=== PATIENT | male | born 1970 | race Asian ===

== ENCOUNTER 2016-09-30 23:51 | Emergency (ER) | payer OTHER ==
[2016-10-01 00:46] LABS: % EOSINOPHILS 2.1 % (0.0-5.0); % LYMPHOCYTES 14.3 % (20.0-50.0); % MONOCYTES 7.8 % (2.0-10.0); % NEUTROPHILS 74.8 % (40.0-80.0); HEMATOCRIT 37.3 % (39.0-49.0); HEMOGLOBIN 12.7 gm/dL (13.2-17.3); MEAN CELL VOLUME 89.9 fl (80-99); MEAN CORPUSCULAR HEMOGLOBIN 30.7 pg (26.0-30.0); MEAN CORPUSCULAR HGB CONC 34.2 pg (28.0-36.0); MEAN PLATELET VOLUME 8.5 fl; NEUTROPHILE ABSOLUTE 6.3 Th/cmm (1.8-8.0); RED BLOOD COUNT 4.14 Mil/cmm (4.30-5.70)
--- NOTE | 2016-10-01 00:49 | ED Physician Chart ---
Chief Complaint/HPI - Patient Information Date Seen:: 10/01/16 Time Seen:: 00:10 Chief Complaint:: TRACH INFECTION History of Present Illness:: THIS IS A 46 YO MALE WITH QUADRAPLEGIC WITH A TRACH IN PLACE AND FUNCTIONING NORMALLY. THE PATIENT HAS AN ENCEPHALOPATHY, HE WAS SENT IN FOR A WOUND CHECK OF THE TRACH. Allergies:: Allergies Allergy/AdvReac Type Severity Reaction Status Date / Time No Known Allergies Allergy Verified 10/01/16 00:22 Vitals:: Vital Signs - 8 hr 10/01/16 00:00 Temp 98.9 F HR 80 RR 20 BP 93/51 O2 Sat % 99 Past Medical History - Past Medical History Past Medical History: HTN, CVA/TIA, Seizures, Dementia Family History: Other (UNKNOWN) Social History: Non Smoker, No Alcohol, No Drug Use Surgical History: PEG/GTube, other (TRACH) Psychiatricy History: None Medication: Reviewed Family Medical History - Family Member Mother History Unknown: Yes Ethnicity: Unknown Living Status: Unknown Hx Family Cancer: (UNKNOWN PT NON VERBAL) Hx Family Coronary Artery Disease: (UNKNOWN) Hx Family Congestive Heart Failure: (UNKNOWN) Hx Family Hypertension: (UNKNOWN) Hx Family Stroke: (UNKNOWN) Hx Family Diabetes: (UNKNOWN) Hx Family Seizures: (UNKNOWN) Hx Family Dementia: (UNKNOWN) Hx Family AIDS: (UNKNOWN) Hx Family COPD: (UNKNOWN) Hx Family Hepatitis: (UNKNOWN) Hx Family Psychiatric Problems: (UNKNOWN) Hx Family Tuberculosis: (UNKNOWN) Physical Exam - Physical Examination General/Constitutional: Awake, Well-developed, well-nourished, Alert, No distress, GCS 15, Non-toxic appearing, Ambulatory Head: Atraumatic Eyes: Lids, conjuctiva normal, PERRL, EOMI Skin: Nl inspection, No rash, No skin lesions, No ecchymosis, Well hydrated, No lymphadenopathy ENMT: External ears, nose nl, Nasal exam nl, Lips, teeth, gums nl Neck: Nontender, Full ROM w/o pain, No JVD, No nuchal rigidity, No bruit, No mass, No stridor Other Neck comments:: TRACH IN PLACE AND FUNCTION NICELY WITH NO SIGN OF BLEEDING AND WELL HEALED Respiratory: Nl effort/Exclusion, Clear to Auscultation, No Wheeze/Rhonchi/Rales Cardio Vascular: RRR, No murmur, gallop, rubs, NL S1 S2 GI: No tenderness/rebounding/guarding, No organomegaly, No hernia, Normal BS's, Nondistended, No mass/bruits, No McBurney tenderness : No CVA tenderness Extremities: No tenderness or effusion, Full ROM, normal strength in all extremities, No edema, Normal digits & nails Neuro/Psych: Alert/oriented, DTR's symmetric, Normal sensory exam, Normal motor strength, Judgement/insight normal, Mood normal, Normal gait Other Neuro/Psych comments:: QUADRAPLEGIC AND BRAIN ANOXIC (OLD) Misc: normal gait, Normal back, No paraspinal tenderness Labs/Radiology/EKG Results - Lab Results Results: Abnormal Lab Results 10/01/16 10/01/16 10/01/16 00:10 00:10 00:10 WBC 8.5 D RBC 4.14 L Hgb 12.7 L Hct 37.3 L MCV 89.9 MCH 30.7 H MCHC Differential 34.2 RDW 12.0 Plt Count 253 D MPV 8.5 Neutrophils % 74.8 Lymphocytes % 14.3 L Monocytes % 7.8 Eosinophils % 2.1 Basophils % 1.0 PT 10.0 INR 0.96 PTT (Actin FS) 27.3 Sodium 137 Potassium 3.9 Chloride 103 Carbon Dioxide 28.4 Anion Gap 9.5 BUN 22 Creatinine 0.6 L Est GFR ( Amer) > 60.0 Est GFR (Non-Af Amer) > 60.0 BUN/Creatinine Ratio 36.7 Glucose 95 Calcium 9.5 Total Bilirubin 0.4 AST 21 ALT 28 Alkaline Phosphatase 93 Troponin I Total Protein 7.2 Albumin 3.9 L Globulin 3.3 Albumin/Globulin Ratio 1.2 TSH 10/01/16 10/01/16 00:10 00:10 WBC RBC Hgb Hct MCV MCH MCHC Differential RDW Plt Count MPV Neutrophils % Lymphocytes % Monocytes % Eosinophils % Basophils % PT INR PTT (Actin FS) Sodium Potassium Chloride Carbon Dioxide Anion Gap BUN Creatinine Est GFR ( Amer) Est GFR (Non-Af Amer) BUN/Creatinine Ratio Glucose Calcium Total Bilirubin AST ALT Alkaline Phosphatase Troponin I < 0.01 L Total Protein Albumin Globulin Albumin/Globulin Ratio TSH 0.95 ED Septic Shock - . Is Septic Shock (SBP<90, OR Lactate>4 mmol\L) present?: No - <6hrs of presentation: Vital Signs: Vital Signs - 8 hr 10/01/16 00:00 Temp 98.9 F HR 80 RR 20 BP 93/51 O2 Sat % 99 Reassessment (Disposition) - Reassessment Reassessment Condition:: Unchanged - Diagnosis Diagnosis:: WOUND CHECK OF THE TRACH - Aftercare/Follow up Instructions Aftercare/Follow-Up Instructions:: Counseled pt regarding lab results/diagnosis & need follow up, Refer to Discharge Instructions, Counseled pt & family regarding lab results/diagnosis & need follow up - Patient Disposition Discharge/Transfer:: [facility] Protection [facility] Care - SNF Condition at Disposition:: Unchanged ED Discharge Plan - Patient Disposition Admit/Discharge/Transfer: Discharge/Transfered to SNF Condition at Disposition: Unchanged
[2016-10-01 00:50] LABS: PLATELET COUNT 253 Th/cmm (150-400); WHITE BLOOD COUNT 8.5 Th/cmm (4.8-10.8)
[2016-10-01 00:55] LABS: INR 0.96 (0.5-1.4)
[2016-10-01 01:01] LABS: ALB/GLOB RATIO 1.2 (1.0-1.8); ALKALINE PHOSPHATASE 93 U/L (34-104); ANION GAP 9.5 (7.0-16.0); BILIRUBIN,TOTAL 0.4 mg/dL (0.3-1.0); BUN - UREA NITROGEN 22 mg/dL (7-25); BUN/CREATININE RATIO 36.7; CALCIUM SERUM 9.5 mg/dL (8.6-10.3); CARBON DIOXIDE 28.4 mEq/L (21.0-31.0); CHLORIDE 103 mEq/L (98-107); CREATININE - SERUM 0.6 mg/dL (0.7-1.3); GLUCOSE 95 mg/dL (70-105); POTASSIUM SERUM 3.9 mEq/L (3.5-5.1); SGOT 21 U/L (13-39); SGPT/ALT 28 U/L (7-52); SODIUM SERUM 137 mEq/L (136-145)
== END 2016-10-01 04:22 ==
LOC: ER 23:51
DX: Z48.01 Encounter for change or removal of surgical wound dressing (principal); I10 Essential (primary) hypertension; Z86.73 Personal history of transient ischemic attack (TIA), and cerebral infarction without residual deficits; Z93.1 Gastrostomy status
CPT/HCPCS: 36415-UA; 80053-TC; 84443-TC; 84484-TC; 85025-TC; 85610-TC; 85730-TC; J0696; Z7502; Z7610

== ENCOUNTER 2017-02-03 13:12 | Emergency (ER) | payer OTHER ==
[2017-02-03] MEDS ORDERED: Diatrizoate Meglumine/Diatri 30 mL Sol PO ONE (13:13)
--- NOTE | 2017-02-03 14:00 | ED Physician Chart ---
Chief Complaint/HPI - Patient Information Date Seen:: 02/03/17 Time Seen:: 13:34 Chief Complaint:: G-TUBE MALFUNCTIONING History of Present Illness:: THIS IS A CHRONICALLY ILL TRACHED QUADRAPLEGIC MALE SENT FROM THE [facility] FOR AN EVALUATION OF HIS G-TUBE FUNCTIONING. THE PATIENT IS COMPLETELY OBTUNDED. Allergies:: Allergies Allergy/AdvReac Type Severity Reaction Status Date / Time No Known Allergies Allergy Verified 10/01/16 00:22 Vitals:: Vital Signs - 8 hr 02/03/17 13:24 Temp 98.8 F HR 67 RR 17 BP 108/63 O2 Sat % 99 Historian:: Medical Records Review:: Nurse's Note Reviewed, Transfer documents Reviewed Review of Systems - Review of Systems General/Constitutional: No fever, No chills, No weight loss, No weakness, No diaphoresis, No edema, No loss of appetite, Other (PT UNABLE TO GIVE REVIEW OF SYSTEMS.) Skin: No skin lesions, No rash, No bruising, Other Head: No headache, No light-headedness Eyes: No loss of vision, No pain, No diplopia ENT: No earache, No nasal drainage, No sore throat, No tinnitus Neck: No neck pain, No swelling, No thyromegaly, No stiffness, No mass noted Cardio Vascular: No chest pain, No palpitations, No PND, No orthopnea, No edema Pulmonary: No SOB, No cough, No sputum, No wheezing GI: No nausea, No vomiting, No diarrhea, No pain, No melena, No hematochezia, No constipation, No hematemesis G/U: No dysuria, No frequency, No hematuria Musculoskeletal: No bone or joint pain, No back pain, No muscle pain Endocrine: No polyuria, No polydipsia Psychiatric: No prior psych history, No depression, No anxiety, No suicidal ideation Hematopoietic: No bruising, No lymphadenopathy Allergic/Immuno: No urticaria, No angioedema Neurological: No syncope, No focal symptoms, No weakness, No paresthesia, No headache, No seizure, No dizziness, No confusion, No vertigo Past Medical History - Past Medical History Obtainable: No Past Medical History: CVA/TIA, Other (QUADRAPLEGIC ) Family History: None Social History: Non Smoker, No Alcohol, No Drug Use, Care Facility Surgical History: PEG/GTube Psychiatricy History: None Medication: Reviewed Family Medical History - Family Member Mother History Unknown: Yes Ethnicity: Unknown Living Status: Unknown Hx Family Cancer: (UNKNOWN PT NON VERBAL) Hx Family Coronary Artery Disease: (UNKNOWN) Hx Family Congestive Heart Failure: (UNKNOWN) Hx Family Hypertension: (UNKNOWN) Hx Family Stroke: (UNKNOWN) Hx Family Diabetes: (UNKNOWN) Hx Family Seizures: (UNKNOWN) Hx Family Dementia: (UNKNOWN) Hx Family AIDS: (UNKNOWN) Hx Family COPD: (UNKNOWN) Hx Family Hepatitis: (UNKNOWN) Hx Family Psychiatric Problems: (UNKNOWN) Hx Family Tuberculosis: (UNKNOWN) Physical Exam - Physical Examination General/Constitutional: Awake, Well-developed, well-nourished, Alert, No distress, GCS 15, Non-toxic appearing, Ambulatory Head: Atraumatic Eyes: Lids, conjuctiva normal, PERRL, EOMI Skin: Nl inspection, No rash, No skin lesions, No ecchymosis, Well hydrated, No lymphadenopathy ENMT: External ears, nose nl, Nasal exam nl, Lips, teeth, gums nl Neck: Nontender, Full ROM w/o pain, No JVD, No nuchal rigidity, No bruit, No mass, No stridor Respiratory: Nl effort/Exclusion, Clear to Auscultation, No Wheeze/Rhonchi/Rales Cardio Vascular: RRR, No murmur, gallop, rubs, NL S1 S2 GI: No tenderness/rebounding/guarding, No organomegaly, No hernia, Normal BS's, Nondistended, No mass/bruits, No McBurney tenderness Other GI comments:: G-TUBE PLUGGED AND UNABLE TO USE IT. : No CVA tenderness Extremities: No tenderness or effusion, Full ROM, normal strength in all extremities, No edema, Normal digits & nails Neuro/Psych: Alert/oriented, DTR's symmetric, Normal sensory exam, Normal motor strength, Judgement/insight normal, Mood normal, Normal gait, No focal deficits Misc: normal gait, Normal back, No paraspinal tenderness Assessment - Assessment General Assessment: NEED G-TUBE REPLACEMENT - Procedures Informed Consent: Procedure/risk/benefits explained by MD: No (G-TUBE REPLACED WITH NO DIFFICULTY) ED Septic Shock - . Is Septic Shock (SBP<90, OR Lactate>4 mmol\L) present?: No - <6hrs of presentation: Vital Signs: Vital Signs - 8 hr 02/03/17 13:24 Temp 98.8 F HR 67 RR 17 BP 108/63 O2 Sat % 99 Reassessment (Disposition) - Reassessment Reassessment Condition:: Unchanged - Diagnosis Diagnosis:: G-TUBE MALFUNCTION - Aftercare/Follow up Instructions Aftercare/Follow-Up Instructions:: Counseled pt regarding lab results/diagnosis & need follow up, Refer to Discharge Instructions, Counseled pt & family regarding lab results/diagnosis & need follow up - Patient Disposition Discharge/Transfer:: Home Condition at Disposition:: Improved ED Discharge Plan - Patient Disposition Admit/Discharge/Transfer: PT DISCHARGED HOME Condition at Disposition: Improved
--- NOTE | 2017-02-03 15:42 | Diagnostic Imaging Report ---
Upper GI (Limited) HISTORY: Gastrostomy tube placement Water-soluble contrast was instilled through the patient's gastrostomy tube. The exam demonstrates opacification of the gastric lumen with flow contrast into the duodenum and small bowel. No extravasation. IMPRESSION: 1. Confirmation of gastrostomy tube within the gastric lumen
== END 2017-02-03 14:03 | disposition home or self-care (01) ==
LOC: ER 13:12
DX: Z43.1 Encounter for attention to gastrostomy (principal); Z86.73 Personal history of transient ischemic attack (TIA), and cerebral infarction without residual deficits; Z93.1 Gastrostomy status
CPT/HCPCS: Z7502; Z7610

== ENCOUNTER 2018-12-27 16:38 | Inpatient (IN) | payer MEDICARE, BC ==
[~2018-12-27 16:38] MED LIST: Levofloxacin 500mg/100mL 500 MG/100 ML BAG IV SCH
--- NOTE | 2018-12-27 17:13 | ED Physician Chart ---
ED Chief Complaint/HPI - Patient Information Date Seen:: 12/27/18 Time Seen:: 17:08 Chief Complaint:: possible pneumonia History of Present Illness:: 48 yr old [place] possible [place] infection pt with g tube contractures non verbal Allergies:: Allergies Allergy/AdvReac Type Severity Reaction Status Date / Time No Known Allergies Allergy Verified 10/01/16 00:22 Vitals:: Vital Signs - 8 hr 12/27/18 16:55 Temp 97.8 F HR 74 BP 140/96 O2 Sat % 96 ED Review of Systems - Review of Systems General/Constitutional: Fever Skin: Skin lesions Pulmonary: SOB, Cough GI: No vomiting, No diarrhea Neurological: No syncope ED Past Medical History - Past Medical History Past Medical History: HTN, DM, Asthma/COPD, Seizures, Other (see nurses notes) Family Medical History - Family Member Mother History Unknown: Yes Ethnicity: Unknown Living Status: Unknown Hx Family Cancer: (UNKNOWN PT NON VERBAL) Hx Family Coronary Artery Disease: (UNKNOWN) Hx Family Congestive Heart Failure: (UNKNOWN) Hx Family Hypertension: (UNKNOWN) Hx Family Stroke: (UNKNOWN) Hx Family Diabetes: (UNKNOWN) Hx Family Seizures: (UNKNOWN) Hx Family Dementia: (UNKNOWN) Hx Family AIDS: (UNKNOWN) Hx Family COPD: (UNKNOWN) Hx Family Hepatitis: (UNKNOWN) Hx Family Psychiatric Problems: (UNKNOWN) Hx Family Tuberculosis: (UNKNOWN) ED Physical Exam - Physical Examination General/Constitutional: Awake Eyes: Lids, conjuctiva normal Other Skin comments:: skin lesons Other Neck comments:: neck flexion ctxs Other Respiratory comments:: rhonchi whezing Cardio Vascular: RRR Other GI comments:: gtube Other Neuro/Psych comments:: pt non verbal ED Assessment - Assessment General Assessment: vegetative state pneumonia ED Septic Shock - . Is Septic Shock (SBP<90, OR Lactate>4 mmol\L) present?: No - <6hrs of presentation: Vital Signs: Vital Signs - 8 hr 12/27/18 16:55 Temp 97.8 F HR 74 BP 140/96 O2 Sat % 96 ED Reassessment (Disposition) - Reassessment Reassessment:: fever possible pneumonia seizure yest wbc elevated 18k - Diagnosis Diagnosis:: as above
[2018-12-27 17:27] LABS: % BASOPHILS 2.7 % (0.0-2.0); % EOSINOPHILS 1.1 % (0.0-5.0); % LYMPHOCYTES 19.4 % (20.0-50.0); % MONOCYTES 14.1 % (2.0-10.0); % NEUTROPHILS 62.7 % (40.0-80.0); BASOPHILE ABSOLUTE 0.3 Th/cumm (0-0.2); EOSINOPHILE ABSOLUTE 0.1 Th/cmm (0.1-0.4); HEMATOCRIT 38.5 % (41.0-60); HEMOGLOBIN 13.3 gm/dL (12-16); MEAN CELL VOLUME 96.6 fl (80-99); MEAN CORPUSCULAR HEMOGLOBIN 33.5 pg (26.0-30.0); MEAN CORPUSCULAR HGB CONC 34.6 pg (28.0-36.0); MONOCYTE ABSOLUTE 1.5 Th/cmm (0.3-1.0); NEUTROPHILE ABSOLUTE 6.6 Th/cmm (1.8-8.0); PLATELET COUNT 185 Th/cmm (150-400); RED BLOOD COUNT 3.99 Mil/cmm (4.30-5.70); RED CELL DISTRIBUTION WIDTH 11.7 % (11.5-20.0); WHITE BLOOD COUNT 10.5 Th/cmm (4.8-10.8)
[2018-12-27] MEDS ORDERED: Sodium Chloride 0.9% 1,000 ML IV ONE (17:30)
[2018-12-27] MEDS ORDERED: Piperacillin Sodium/Tazobact 3.375 gm Vial IV ONE ×2 (17:35→23:45)
[2018-12-27 17:39] LABS: INR 0.94 (0.5-1.4)
[2018-12-27 17:45] LABS: ALBUMIN 3.3 gm/dL (4.2-5.5); ALKALINE PHOSPHATASE 119 U/L (34-104); ANION GAP 12.5 (7.0-16.0); BILIRUBIN,TOTAL 0.7 mg/dL (0.3-1.0); BUN - UREA NITROGEN 22 mg/dL (7-25); CALCIUM SERUM 9.1 mg/dL (8.6-10.3); CARBON DIOXIDE 30.3 mEq/L (21.0-31.0); CHLORIDE 97 mEq/L (98-107); CREATININE - SERUM 0.7 mg/dL (0.7-1.3); GFR AFRICAN-AMERICAN > 60.0 ml/min (>90); GFR NON AFRICAN-AMERICAN > 60.0 ml/min; GLUCOSE 94 mg/dL (70-105); POTASSIUM SERUM 3.8 mEq/L (3.5-5.1); SGOT 35 U/L (13-39); SGPT/ALT 23 U/L (7-52); SODIUM SERUM 136 mEq/L (136-145); TOTAL PROTEIN,SERUM 6.6 gm/dL (6.0-8.3)
[2018-12-27 17:53] LABS: URINE SOURCE CATH
[2018-12-27 17:57] LABS: URINE BILIRUBIN NEGATIVE (NEGATIVE); URINE BLOOD TRACE (NEGATIVE); URINE GLUCOSE (UA) NEGATIVE (NEGATIVE); URINE KETONE NEGATIVE (NEGATIVE); URINE LEUKOCYTE ESTERASE SMALL (NEGATIVE); URINE MICROSCOPIC INDICATED? YES; URINE NITRATE POSITIVE (NEGATIVE); URINE PH 6.5 (4.6 - 8.0); URINE PROTEIN NEGATIVE (NEGATIVE)
[2018-12-27 17:58] LABS: URINE CLARITY HAZY (CLEAR); URINE COLOR YELLOW
[2018-12-27 18:01] LABS: URINE BACTERIA 3+ /hpf (NONE SEEN); URINE COARSE GRANULAR CAST 0-2 /lpf (NONE SEEN); URINE EPITHELIAL CELLS OCCASIONAL /lpf (FEW)
[2018-12-27] MEDS: Levofloxacin 500mg/100mL 500 MG/100 ML BAG IV SCH (21:00)
[2018-12-27] MEDS ORDERED: Albuterol/Ipratropium Neb 3 ML AERS HHN PRN (22:43)
[2018-12-27] MEDS: Albuterol/Ipratropium Neb 3 ML AERS HHN SCH (23:37)
[2018-12-27] MEDS ORDERED: Levofloxacin 500mg/100mL 500 MG/100 ML BAG IV ONE (23:44)
[2018-12-28 04:24] VITALS: BP 135/68
[2018-12-28 05:33] LABS: HEMATOCRIT 35.4 % (41.0-60); HEMOGLOBIN 12.4 gm/dL (12-16); MEAN CELL VOLUME 96.6 fl (80-99); MEAN CORPUSCULAR HEMOGLOBIN 33.7 pg (26.0-30.0); MEAN CORPUSCULAR HGB CONC 34.9 pg (28.0-36.0); PLATELET COUNT 171 Th/cmm (150-400); RED BLOOD COUNT 3.67 Mil/cmm (4.30-5.70); RED CELL DISTRIBUTION WIDTH 11.9 % (11.5-20.0); WHITE BLOOD COUNT 6.9 Th/cmm (4.8-10.8)
[2018-12-28 05:43] LABS: ALBUMIN 2.9 gm/dL (4.2-5.5); ALKALINE PHOSPHATASE 80 U/L (34-104); ANION GAP 9.9 (7.0-16.0); BUN - UREA NITROGEN 21 mg/dL (7-25); CALCIUM SERUM 8.8 mg/dL (8.6-10.3); CARBON DIOXIDE 29.6 mEq/L (21.0-31.0); CHLORIDE 103 mEq/L (98-107); CREATININE - SERUM 0.7 mg/dL (0.7-1.3); GFR AFRICAN-AMERICAN > 60.0 ml/min (>90); GFR NON AFRICAN-AMERICAN > 60.0 ml/min; GLUCOSE 92 mg/dL (70-105); POTASSIUM SERUM 3.5 mEq/L (3.5-5.1); SGOT 46 U/L (13-39); SGPT/ALT 24 U/L (7-52); SODIUM SERUM 139 mEq/L (136-145); TOTAL PROTEIN,SERUM 5.7 gm/dL (6.0-8.3)
[2018-12-28] MEDS ORDERED: Piperacillin Sodium/Tazobact 3.375 gm Vial IV ONE (06:40)
[2018-12-28 07:27] LABS: NEUTROPHILS 74 % (40-80)
[2018-12-28 07:29] LABS: BAND NEUTROPHILE 0 % (0-10); BASOPHIL 0 % (0-3); EOSINOPHIL 1 % (0-5); LYMPHOCYTE 11 % (20-50); MONOCYTE 14 % (2-10)
[2018-12-28] MEDS: Albuterol/Ipratropium Neb 3 ML AERS HHN SCH ×3 (08:05→18:52)
--- NOTE | 2018-12-28 08:31 | Diagnostic Imaging Report ---
Portable chest x-ray HISTORY: Cough The heart size difficult to assess with portable technique in a poor inspiration. Allowing for a poor inspiration, no acute focal pulmonary processes. Tracheostomy seen. IMPRESSION: 1. No definite acute focal pulmonary processes
--- NOTE | 2018-12-28 11:52 | History and Physical ---
History of Present Illness - HPI Chief Complaint: 48 y/o male patient was brought into ER due to fever and cough. HPI: 48 y/o male patient was admitted to [facility] due to Fever and Cough. Patient has history of Diabetes, Epilepsy, Hypertension, COPD, Cerebrovascular disease, History of Respiratory failure, Anoxic brain injury, Vegetative state and is Non-verbal. Patient had an ER assessment and a complete workup was done. Patient had a chest x-ray done which showed Large infiltrate on right side. Patient was diagnosed with Pneumonia. Patient was started on Antibiotics. Patient will have an ID consult, Pulmonary consult and I will follow patient. patient will be treated and monitored. Patient will continue current treatment plan as ordered. pt is tach with t bar and g tube pt mentally challenged Vital Signs: Last Vital Signs Temp 99.3 F 12/28/18 10:00 Pulse 98 12/28/18 10:00 Resp 18 12/28/18 10:00 BP 145/81 12/28/18 10:00 Pulse Ox 96 12/28/18 10:00 Past Medical History Cardiovascular: Report: CAD, HTN Pulmonary: Report: COPD, Pneumonia RECEPTION AGENT: Report: Seizure GI: Report: No Pertinent Hx Psych: Report: No Pertinent Hx Musculoskeletal: Report: Weakness Rheumatologic: Report: No pertinent Hx Infectious Disease: Report: No Pertinent Hx Renal/: Report: No Pertinent Hx Endocrine: Report: Diabetes Dermatology: Report: No Pertinent Hx - Past Surgical History Past Surgical History: Other (Trach and G-tube placement.) Family Medical History - Family Member Mother History Unknown: Yes Ethnicity: Unknown Living Status: Unknown Hx Family Cancer: (UNKNOWN PT NON VERBAL) Hx Family Coronary Artery Disease: (UNKNOWN) Hx Family Congestive Heart Failure: (UNKNOWN) Hx Family Hypertension: (UNKNOWN) Hx Family Stroke: (UNKNOWN) Hx Family Diabetes: (UNKNOWN) Hx Family Seizures: (UNKNOWN) Hx Family Dementia: (UNKNOWN) Hx Family AIDS: (UNKNOWN) Hx Family COPD: (UNKNOWN) Hx Family Hepatitis: (UNKNOWN) Hx Family Psychiatric Problems: (UNKNOWN) Hx Family Tuberculosis: (UNKNOWN) Social History Smoke: No Alcohol: None Drugs: None [place]: [place] Domestic Violence: Negative Health Maintenance Health Maintenance: Other (see chart.) - Medications Home Medications: Home Medication Medication Instructions Recorded Type Acetaminophen [Tylenol] 650 mg GT Q4H PRN 05/17/16 History Levetiracetam [Keppra] 1,000 mg GT TID 05/17/16 History Magnesium Hydroxide [Milk of 30 ml GT HS PRN 05/17/16 History Magnesia] Sennosides 8.6 mg GT DAILY 05/17/16 History Ipratropium Neb 0.5 mg/2.5 mL 0.5 mg HHN Q4H PRN 10/01/16 History [Atrovent Neb 0.5MG/2.5ML] Ipratropium Neb 0.5 mg/2.5 mL 0.5 mg HHN Q6H 10/01/16 History [Atrovent Neb 0.5MG/2.5ML] Magnesium Hydroxide [Milk of 30 ml GT HS 02/03/17 History Magnesia] Multivitamin w/ Minerals 1 tab GT DAILY 02/03/17 History [Theragran M] Diphenhydramine HCL [Benadryl] 50 mg GT Q8H PRN 08/03/18 History Valproic Acid [Depakene] 20 ml GT BID 08/03/18 History Other Medications: Please see medication reconciliation sheet. - Allergies Allergies/Adverse Reactions: Allergies Allergy/AdvReac Type Severity Reaction Status Date / Time No Known Allergies Allergy Verified 10/01/16 00:22 Review of Systems - Review of Systems Review of Systems: 48 y/o male patient has cough and generalized weakness. Constitutional: Report: Weakness Eyes: Report: No Significant ENT: Report: No Significant Respiratory: Report: Cough Cardiovascular: Report: No Significant Gastrointestinal: Report: No Significant Genitourinary: Report: No Significant Musculoskeletal: Report: No Significant Skin: Report: No Significant Neurological: Report: Seizures Physical Exam - Physical Exam HEENT: Report: Ears Nose Throat within normal limits Neck: Report: Tracheostomy site noted to be clean Cardiovascular Systems: Report: +s1/s2 noted Respiratory: Report: Rhonchi Abdomen: Report: PEG site is clean Back: Report: Inspection of back is within normal limits. Extremities: Report: Extremities are contracted Skin: Report: Color of skin is within normal limits Neuro/Psych: Report: Mood affect is within normal limits - Lab Results All Lab Results last 24 hours: Laboratory Results - last 24 hr 12/27/18 12/27/18 12/27/18 17:21 17:21 17:21 WBC 10.5 RBC 3.99 L Hgb 13.3 Hct 38.5 L MCV 96.6 MCH 33.5 H MCHC Differential 34.6 RDW 11.7 Plt Count 185 MPV 7.7 Add Manual Diff Neutrophils % 62.7 Band Neutrophils % Lymphocytes % 19.4 L Monocytes % 14.1 H Eosinophils % 1.1 Basophils % 2.7 H Neutrophils (Manual) Lymphocytes Monocytes Eosinophils Basophils PT INR PTT (Actin FS) Sodium 136 Potassium 3.8 Chloride 97 L Carbon Dioxide 30.3 Anion Gap 12.5 BUN 22 Creatinine 0.7 Est GFR ( Amer) > 60.0 Est GFR (Non-Af Amer) > 60.0 BUN/Creatinine Ratio 31.4 Glucose 94 POC Glucose Whole Bld Lactic Acid 1.68 Calcium 9.1 Total Bilirubin 0.7 AST 35 ALT 23 Alkaline Phosphatase 119 H Troponin I Total Protein 6.6 Albumin 3.3 L Globulin 3.3 Albumin/Globulin Ratio 1.0 Urine Source Urine Color Urine Clarity Urine pH Ur Specific Urich Urine Protein Urine Glucose (UA) Urine Ketones Urine Blood Urine Nitrate Urine Bilirubin Urine Urobilinogen Ur Leukocyte Esterase Urine RBC Urine WBC Ur Epithelial Cells Urine Bacteria Coarse Granular Casts Urine Mucus 12/27/18 12/27/18 12/27/18 17:21 17:21 17:45 WBC RBC Hgb Hct MCV MCH MCHC Differential RDW Plt Count MPV Add Manual Diff Neutrophils % Band Neutrophils % Lymphocytes % Monocytes % Eosinophils % Basophils % Neutrophils (Manual) Lymphocytes Monocytes Eosinophils Basophils PT 9.8 INR 0.94 PTT (Actin FS) 29.3 Sodium Potassium Chloride Carbon Dioxide Anion Gap BUN Creatinine Est GFR ( Amer) Est GFR (Non-Af Amer) BUN/Creatinine Ratio Glucose POC Glucose Whole Bld Lactic Acid Calcium Total Bilirubin AST ALT Alkaline Phosphatase Troponin I 0.01 Total Protein Albumin Globulin Albumin/Globulin Ratio Urine Source CATH Urine Color YELLOW Urine Clarity HAZY Urine pH 6.5 Ur Specific Urich 1.015 Urine Protein NEGATIVE Urine Glucose (UA) NEGATIVE Urine Ketones NEGATIVE Urine Blood TRACE Urine Nitrate POSITIVE H Urine Bilirubin NEGATIVE Urine Urobilinogen 1.0 Ur Leukocyte Esterase SMALL H Urine RBC 2-5 H Urine WBC 6-10 Ur Epithelial Cells OCCASIONAL Urine Bacteria 3+ H Coarse Granular Casts 0-2 H Urine Mucus FEW 12/28/18 12/28/18 12/28/18 00:56 04:28 04:28 WBC 6.9 RBC 3.67 L Hgb 12.4 Hct 35.4 L MCV 96.6 MCH 33.7 H MCHC Differential 34.9 RDW 11.9 Plt Count 171 MPV 8.4 Add Manual Diff Neutrophils % Band Neutrophils % 0 Lymphocytes % Monocytes % Eosinophils % Basophils % Neutrophils (Manual) 74 Lymphocytes 11 L Monocytes 14 H Eosinophils 1 Basophils 0 PT INR PTT (Actin FS) Sodium 139 Potassium 3.5 Chloride 103 Carbon Dioxide 29.6 Anion Gap 9.9 BUN 21 Creatinine 0.7 Est GFR ( Amer) > 60.0 Est GFR (Non-Af Amer) > 60.0 BUN/Creatinine Ratio 30.0 Glucose 92 POC Glucose 89 Whole Bld Lactic Acid Calcium 8.8 Total Bilirubin 1.0 AST 46 H ALT 24 Alkaline Phosphatase 80 Troponin I Total Protein 5.7 L Albumin 2.9 L Globulin 2.8 Albumin/Globulin Ratio 1.0 Urine Source Urine Color Urine Clarity Urine pH Ur Specific Urich Urine Protein Urine Glucose (UA) Urine Ketones Urine Blood Urine Nitrate Urine Bilirubin Urine Urobilinogen Ur Leukocyte Esterase Urine RBC Urine WBC Ur Epithelial Cells Urine Bacteria Coarse Granular Casts Urine Mucus 12/28/18 06:01 WBC RBC Hgb Hct MCV MCH MCHC Differential RDW Plt Count MPV Add Manual Diff Neutrophils % Band Neutrophils % Lymphocytes % Monocytes % Eosinophils % Basophils % Neutrophils (Manual) Lymphocytes Monocytes Eosinophils Basophils PT INR PTT (Actin FS) Sodium Potassium Chloride Carbon Dioxide Anion Gap BUN Creatinine Est GFR ( Amer) Est GFR (Non-Af Amer) BUN/Creatinine Ratio Glucose POC Glucose 77 Whole Bld Lactic Acid Calcium Total Bilirubin AST ALT Alkaline Phosphatase Troponin I Total Protein Albumin Globulin Albumin/Globulin Ratio Urine Source Urine Color Urine Clarity Urine pH Ur Specific Urich Urine Protein Urine Glucose (UA) Urine Ketones Urine Blood Urine Nitrate Urine Bilirubin Urine Urobilinogen Ur Leukocyte Esterase Urine RBC Urine WBC Ur Epithelial Cells Urine Bacteria Coarse Granular Casts Urine Mucus - Assessment Assessment: Pneumonia. History of Anoxic brain injury with Seizure. History of Respiratory failure. Epilepsy. Diabetes. Hypertension. Copd. Cerebrovascular disease. G-tube status. Trach status. Contractures of bilateral extremities. - Plan Plan: Continuation of care. ID consult and Pulmonary consult. Monitor Labs and Chest x-ray. Continue present meds as directed. Monitor vitals, Continue BP meds as directed. Accu-check daily, Continue DM meds as directed. Respiratory treatments and Pulmonary support prn. Supplemental Oxygen. Aspiration precaution. Deep suctioning prn. Monitor Diet/Nutritional support/G-tube feedings. G-tube care and Trach care. Physical therapy. Occupational therapy. Fall precaution, frequent nursing rounds, and as needed restraints to prevent fall. Supportive care. Seizure precaution. Continue collaborating with consulting specialists, case management and nursing team. Will Monitor patient and continue current treatment plan as ordered.
[2018-12-28] MEDS: Levofloxacin 500mg/100mL 500 MG/100 ML BAG IV SCH (20:00)
--- NOTE | 2018-12-29 00:51 | Consultation ---
DATE OF CONSULTATION: 12/28/2018 INFECTIOUS DISEASE CONSULTATION REFERRING PHYSICIAN: Dr. Lyman. REASON FOR CONSULTATION: UTI. HISTORY OF PRESENT ILLNESS: The patient is a 48-year-old male with a past medical history of hypertension, diabetes mellitus type 2, asthma, COPD, seizure disorder, anoxic encephalopathy, respiratory failure, on T-bar oxygen brought in from nursing facility for fever with leukocytosis and possible pneumonia. The patient is nonverbal and unable to give any history. On initial evaluation, the patient's temperature 97.8 degrees Fahrenheit and WBC count was 10,500. Zosyn was started and ID consult was called for further antibiotic management. Initially, the patient was thought to have pneumonia, but chest x-ray showed no acute infiltrate, although urinalysis showed bacteria and mild pyuria. ID consult was called for antibiotic management. PAST MEDICAL HISTORY: Includes diabetes mellitus type 2, hypertension, CVA, seizure disorder, TIA as well history of anoxic encephalopathy and respiratory insufficiency, on T-bar oxygen, dysphagia and G-tube placement. ALLERGIES: NKDA. FAMILY HISTORY: Noncontributory. MEDICATIONS: As per medication reconciliation sheet. Antibiotic hernandez, the patient is on Zosyn. REVIEW OF SYSTEMS: The patient is unable to give any history. PHYSICAL EXAMINATION: VITAL SIGNS: Current vital signs show temperature is 98 degrees Fahrenheit, pulse 118, respirations 20, blood pressure 136/87, oxygen saturation 98%. GENERAL: The patient is comfortable, lying in the bed, on the T-bar oxygen. HEENT: Head is normocephalic, atraumatic. Oral cavity moist, pink tongue. Eyes: Pallor is present. No icterus. NECK: Trach site is clear. CHEST: Bilateral vesicular breath sounds. No crackles or wheezing. HEART: S1, S2 within normal limits. Regular rhythm. No murmur, no gallop. ABDOMEN: Soft, nontender, nondistended. Bowel sounds present. G-tube site is clear. EXTREMITIES: No cyanosis, no clubbing, no edema. NEUROLOGIC: Alert, awake, but aphasic. LABORATORY DATA: Current lab shows WBC count is 6900, hemoglobin 12.4, hematocrit 35.4, platelets are 171,000, neutrophils 74%, and lymphocyte 11%. Sodium 139, potassium 3.4, chloride 103, bicarbonate is 29.6, BUN is 21, creatinine 0.7, glucose is 92. LFTs are reviewed. Urinalysis shows positive nitrite, hazy urine with leukocyte esterase small, wbcs 6-10 and 3+ bacteria. Chest x-ray shows no active disease. IMPRESSION: 1. Urinary tract infection. 2. Respiratory insufficiency, on T-bar oxygen. 3. Diabetes mellitus 2. 4. Hypertension. 5. Cerebrovascular accident and anoxic encephalopathy. 6. Seizure disorder. RECOMMENDATIONS AND PLAN: We will continue Zosyn and depending on the culture report, we will define final antibiotic therapy. Thank you, Dr. Lyman for involving me in taking care of this patient. JOB# [id number]
[2018-12-29] MEDS: Albuterol/Ipratropium Neb 3 ML AERS HHN SCH ×4 (01:43→18:06)
--- NOTE | 2018-12-29 18:50 | Internal Medicine Prog Note ---
Internal Medicine Subjective - Subjective Service Date: 12/29/18 Patient seen and examined:: with staff Patient is:: awake Per staff patient has:: tolerating meds Internal Medicine Objective - Results Result Diagrams: 12/28/18 04:28 12/28/18 04:28 Recent Labs: Laboratory Last Values WBC 6.9 Th/cmm (4.8-10.8) 12/28/18 04:28 RBC 3.67 Mil/cmm (4.30-5.70) L 12/28/18 04:28 Hgb 12.4 gm/dL (12-16) 12/28/18 04:28 Hct 35.4 % (41.0-60) L 12/28/18 04:28 MCV 96.6 fl (80-99) 12/28/18 04:28 MCH 33.7 pg (26.0-30.0) H 12/28/18 04:28 MCHC Differential 34.9 pg (28.0-36.0) 12/28/18 04:28 RDW 11.9 % (11.5-20.0) 12/28/18 04:28 Plt Count 171 Th/cmm (150-400) 12/28/18 04:28 MPV 8.4 fl 12/28/18 04:28 Add Manual Diff 12/28/18 04:28 Neutrophils % 62.7 % (40.0-80.0) 12/27/18 17:21 Band Neutrophils % 0 % (0-10) 12/28/18 04:28 Lymphocytes % 19.4 % (20.0-50.0) L 12/27/18 17:21 Monocytes % 14.1 % (2.0-10.0) H 12/27/18 17:21 Eosinophils % 1.1 % (0.0-5.0) 12/27/18 17:21 Basophils % 2.7 % (0.0-2.0) H 12/27/18 17:21 Neutrophils (Manual) 74 % (40-80) 12/28/18 04:28 Lymphocytes 11 % (20-50) L 12/28/18 04:28 Monocytes 14 % (2-10) H 12/28/18 04:28 Eosinophils 1 % (0-5) 12/28/18 04:28 Basophils 0 % (0-3) 12/28/18 04:28 PT 9.8 SECONDS (9.5-11.5) 12/27/18 17:21 INR 0.94 (0.5-1.4) 12/27/18 17:21 PTT (Actin FS) 29.3 SECONDS (26.0-38.0) 12/27/18 17:21 Sodium 139 mEq/L (136-145) 12/28/18 04:28 Potassium 3.5 mEq/L (3.5-5.1) 12/28/18 04:28 Chloride 103 mEq/L (98-107) 12/28/18 04:28 Carbon Dioxide 29.6 mEq/L (21.0-31.0) 12/28/18 04:28 Anion Gap 9.9 (7.0-16.0) 12/28/18 04:28 BUN 21 mg/dL (7-25) 12/28/18 04:28 Creatinine 0.7 mg/dL (0.7-1.3) 12/28/18 04:28 Est GFR ( Amer) > 60.0 ml/min (>90) 12/28/18 04:28 Est GFR (Non-Af Amer) > 60.0 ml/min 12/28/18 04:28 BUN/Creatinine Ratio 30.0 12/28/18 04:28 Glucose 92 mg/dL (70-105) 12/28/18 04:28 POC Glucose 77 MG/DL (70 - 105) 12/28/18 06:01 Whole Bld Lactic Acid 1.68 mmol/L (0.60-1.99) 12/27/18 17:21 Calcium 8.8 mg/dL (8.6-10.3) 12/28/18 04:28 Total Bilirubin 1.0 mg/dL (0.3-1.0) 12/28/18 04:28 AST 46 U/L (13-39) H 12/28/18 04:28 ALT 24 U/L (7-52) 12/28/18 04:28 Alkaline Phosphatase 80 U/L (34-104) 12/28/18 04:28 Troponin I 0.01 ng/mL (0.01-0.05) 12/27/18 17:21 Total Protein 5.7 gm/dL (6.0-8.3) L 12/28/18 04:28 Albumin 2.9 gm/dL (4.2-5.5) L 12/28/18 04:28 Globulin 2.8 gm/dL 12/28/18 04:28 Albumin/Globulin Ratio 1.0 (1.0-1.8) 12/28/18 04:28 Urine Source CATH 12/27/18 17:45 Urine Color YELLOW 12/27/18 17:45 Urine Clarity HAZY (CLEAR) 12/27/18 17:45 Urine pH 6.5 (4.6 - 8.0) 12/27/18 17:45 Ur Specific [place] 1.015 (1.005-1.030) 12/27/18 17:45 Urine Protein NEGATIVE mg/dL (NEGATIVE) 12/27/18 17:45 Urine Glucose (UA) NEGATIVE mg/dL (NEGATIVE) 12/27/18 17:45 Urine Ketones NEGATIVE mg/dL (NEGATIVE) 12/27/18 17:45 Urine Blood TRACE (NEGATIVE) 12/27/18 17:45 Urine Nitrate POSITIVE (NEGATIVE) H 12/27/18 17:45 Urine Bilirubin NEGATIVE (NEGATIVE) 12/27/18 17:45 Urine Urobilinogen 1.0 E.U./dL (0.2 - 1.0) 12/27/18 17:45 Ur Leukocyte Esterase SMALL (NEGATIVE) H 12/27/18 17:45 Urine RBC 2-5 /hpf (0-5) H 12/27/18 17:45 Urine WBC 6-10 /hpf (0-5) 12/27/18 17:45 Ur Epithelial Cells OCCASIONAL /lpf (FEW) 12/27/18 17:45 Urine Bacteria 3+ /hpf (NONE SEEN) H 12/27/18 17:45 Coarse Granular Casts 0-2 /lpf (NONE SEEN) H 12/27/18 17:45 Urine Mucus FEW /lpf (FEW) 12/27/18 17:45 - Physical Exam Vitals and I&O: Vital Signs Temp 98.0 F 12/29/18 16:00 Pulse 92 12/29/18 16:00 Resp 18 12/29/18 16:00 BP 103/64 12/29/18 16:00 Pulse Ox 99 12/29/18 16:00 Intake & Output 06/12/29/18 12/29/18 18:59 06:59 18:59 Intake Total 100 1260 50 Balance 100 1260 50 Weight (lbs) 162 lb Intake: Intake, IV Amount 100 200 50 Levofloxacin 500mg/100mL 100 500 mg In 100 ml @ 100 mls/hr IV Q24HR [facility] Rx#: [id number] Piperacillin Sodium/ 100 100 50 Tazobact 3.375 gm In Sodium Chloride 0.9% 50 ml @ 100 mls/hr IV Q6HR [facility] Rx#:[id number] Tube Feeding 660 Other 400 Other: # Voids 2 Weight Source Bedscale Active Medications: Current Medications Albuterol/Ipratropium (Duoneb Neb) 3 ml HHN Q4HRT PRN PRN Reason: Wheezing Stop: 02/25/19 22:42 Albuterol/Ipratropium (Duoneb Neb) 3 ml HHN Q6HRT [facility] Stop: 02/25/19 22:59 Last Admin: 12/29/18 18:06 Dose: 3 ml Piperacillin Sod/Tazobactam (Sod 3.375 gm/ Sodium Chloride) 50 mls @ 100 mls/ hr IV Q6HR [facility] Stop: 02/25/19 17:59 Last Admin: 12/29/18 17:06 Dose: 100 mls/hr Levofloxacin (Levaquin Pb) 500 mg in 100 mls @ 100 mls/hr IV Q24HR [facility] Stop: 02/25/19 19:59 Last Infusion: 12/28/18 21:00 Dose: Infused General: alert HEENT: NC/AT, PERRLA Neck: + trach Lungs: ronchi Cardiovascular: RRR, Normal S1, Normal S2, without murmur Abdomen: soft, non-tender, non-distended, positive bowel sound Extremities: excoriation Neurological: alert Internal Medicine Assmt/Plan - Assessment Assessment: Pneumonia. History of Anoxic brain injury with Seizure. History of Respiratory failure. Epilepsy. Diabetes. Hypertension. Copd. Cerebrovascular disease. G-tube status. Trach status. Contractures of bilateral extremities. . - Plan Plan: Continuation of care. ID consult and Pulmonary consult. Monitor Labs and Chest x-ray. Continue present meds as directed. Monitor vitals, Continue BP meds as directed. Accu-check daily, Continue DM meds as directed. Respiratory treatments and Pulmonary support prn. Supplemental Oxygen. Aspiration precaution. Deep suctioning prn. Monitor Diet/Nutritional support/G-tube feedings. G-tube care and Trach care. Physical therapy. Occupational therapy. Fall precaution, frequent nursing rounds, and as needed restraints to prevent fall. Supportive care. Seizure precaution. Continue collaborating with consulting specialists, case management and nursing team. Will Monitor patient and continue current treatment plan as ordered Nutritional Asmnt/Malnutr-PDOC - Dietary Evaluation Malnutrition Findings (Please click <Entered> for more info): Nutritional Asmnt/Malnutrition Start: 12/28/18 12: 52 Text: Status: Complete Freq: Protocol: Document 12/28/18 12:52 MBONUS (Rec: 12/28/18 13:09 [email or web address] [email or web address]) Nutritional Asmnt/Malnutrition Patient General Information Nutritional Screening High Risk Diagnosis Pneumonnia Pertinent Medical Hx/Surgical Hx PNEUMONNIA Current Diet Order/ Nutrition Support GLUCERNA 1.2 @55ML/HR FOR 20 HOURS Pertinent Medications ALBUTEROL Pertinent Labs 12/27 Cl 97, Alb 3.3 12/28 Alb 2.9 Nutritional Hx/Data Height 5 ft 7 in Height (Calculated Centimeters) 170.2 Current Weight (lbs) 162 lb Weight (Calculated Kilograms) 73.5 Weight (Calculated Grams) 12406.0 [place] Body Weight 145 % [place] Body Weight 112 Body Mass Index (BMI) 25.3 Weight Status Overweight GI Symptoms GI Symptoms None Last BM NOT NOTED Skin Integrity/Comment: INTACT, FLUSH, WARM, ELASTIC Estimated Nutritional Goals BEE in Kcals: Adj wt of IBW Calories/Kcals/Kg 20-25 Kcals Calculated 5850-2321 Protein: Adj wt of IBW Protein g/k.8-0.9 Protein Calculated 55-62 Fluid: ml 6511-8796 Nutritional Problem 1. Problem Problem INADEQUATE ORAL INTAKE Etiology R/T VEGETATIVE STATE Signs/Symptoms: AEB G-TUBE PLACEMENT Malnutrition Related to Morbid Obesity Malnutrition related to morbid obesity No Intervention/Recommendation Comments 1.Continue with current TF regimen. It provides 1320kcal, 66g protein, 885ml free water , meeting 95% of calories needs and 100%+ protein need. Expected Outcomes/Goals Expected Outcomes/Goals 1. Monitor TF rate, tolerance, wt, skin integrity and labs 2. F/U as moderate risk in 3-5 days, 12/31-01/02
[2018-12-29] MEDS ORDERED: Ipratropium Neb 0.5 mg/2.5 mL UD HHN PRN (19:08)
[2018-12-29] MEDS ORDERED: Ipratropium Neb 0.5 mg/2.5 mL UD HHN SCH (19:15)
[2018-12-29] MEDS: Magnesium Hydroxide (MOM) 30 mL UDC GT SCH (21:01)
[2018-12-29] MEDS: Levofloxacin 500mg/100mL 500 MG/100 ML BAG IV SCH (22:00)
[2018-12-30] MEDS: Albuterol/Ipratropium Neb 3 ML AERS HHN SCH ×4 (01:04→18:52)
[2018-12-30 06:42] LABS: HEMATOCRIT 34.3 % (41.0-60); HEMOGLOBIN 11.9 gm/dL (12-16); MEAN CELL VOLUME 97.6 fl (80-99); MEAN CORPUSCULAR HEMOGLOBIN 33.7 pg (26.0-30.0); MEAN CORPUSCULAR HGB CONC 34.5 pg (28.0-36.0); PLATELET COUNT 201 Th/cmm (150-400); RED BLOOD COUNT 3.52 Mil/cmm (4.30-5.70); RED CELL DISTRIBUTION WIDTH 11.8 % (11.5-20.0); WHITE BLOOD COUNT 4.8 Th/cmm (4.8-10.8)
[2018-12-30 07:07] LABS: ANION GAP 11.8 (7.0-16.0); BUN - UREA NITROGEN 20 mg/dL (7-25); CALCIUM SERUM 8.7 mg/dL (8.6-10.3); CARBON DIOXIDE 29.8 mEq/L (21.0-31.0); CHLORIDE 108 mEq/L (98-107); CREATININE - SERUM 0.8 mg/dL (0.7-1.3); GFR AFRICAN-AMERICAN > 60.0 ml/min (>90); GFR NON AFRICAN-AMERICAN > 60.0 ml/min; GLUCOSE 130 mg/dL (70-105); POTASSIUM SERUM 3.6 mEq/L (3.5-5.1); SODIUM SERUM 146 mEq/L (136-145)
[2018-12-30 08:28] LABS: NEUTROPHILS 58 % (40-80)
[2018-12-30 08:29] LABS: BAND NEUTROPHILE 0 % (0-10); BASOPHIL 0 % (0-3); EOSINOPHIL 4 % (0-5); LYMPHOCYTE 22 % (20-50); MONOCYTE 16 % (2-10)
[2018-12-30] MEDS ORDERED: Multivitamin w/ Minerals Tab GT SCH (09:00)
--- NOTE | 2018-12-30 15:18 | Internal Medicine Prog Note ---
Internal Medicine Subjective - Subjective Service Date: 12/30/18 Patient seen and examined:: with staff Patient is:: awake, verbal Patient Complaints of:: congestion, other (pneumonia.) Per staff patient has:: no adverse event, no episodes of fall, tolerating meds Internal Medicine Objective - Results Result Diagrams: 12/30/18 05:55 12/30/18 05:55 Recent Labs: Laboratory Last Values WBC 4.8 Th/cmm (4.8-10.8) 12/30/18 05:55 RBC 3.52 Mil/cmm (4.30-5.70) L 12/30/18 05:55 Hgb 11.9 gm/dL (12-16) L 12/30/18 05:55 Hct 34.3 % (41.0-60) L 12/30/18 05:55 MCV 97.6 fl (80-99) 12/30/18 05:55 MCH 33.7 pg (26.0-30.0) H 12/30/18 05:55 MCHC Differential 34.5 pg (28.0-36.0) 12/30/18 05:55 RDW 11.8 % (11.5-20.0) 12/30/18 05:55 Plt Count 201 Th/cmm (150-400) 12/30/18 05:55 MPV 7.5 fl 12/30/18 05:55 Add Manual Diff YES 12/30/18 05:55 Neutrophils % 62.7 % (40.0-80.0) 12/27/18 17:21 Band Neutrophils % 0 % (0-10) 12/30/18 05:55 Lymphocytes % 19.4 % (20.0-50.0) L 12/27/18 17:21 Monocytes % 14.1 % (2.0-10.0) H 12/27/18 17:21 Eosinophils % 1.1 % (0.0-5.0) 12/27/18 17:21 Basophils % 2.7 % (0.0-2.0) H 12/27/18 17:21 Neutrophils (Manual) 58 % (40-80) 12/30/18 05:55 Lymphocytes 22 % (20-50) 12/30/18 05:55 Monocytes 16 % (2-10) H 12/30/18 05:55 Eosinophils 4 % (0-5) 12/30/18 05:55 Basophils 0 % (0-3) 12/30/18 05:55 PT 9.8 SECONDS (9.5-11.5) 12/27/18 17:21 INR 0.94 (0.5-1.4) 12/27/18 17:21 PTT (Actin FS) 29.3 SECONDS (26.0-38.0) 12/27/18 17:21 Sodium 146 mEq/L (136-145) H 12/30/18 05:55 Potassium 3.6 mEq/L (3.5-5.1) 12/30/18 05:55 Chloride 108 mEq/L (98-107) H 12/30/18 05:55 Carbon Dioxide 29.8 mEq/L (21.0-31.0) 12/30/18 05:55 Anion Gap 11.8 (7.0-16.0) 12/30/18 05:55 BUN 20 mg/dL (7-25) 12/30/18 05:55 Creatinine 0.8 mg/dL (0.7-1.3) 12/30/18 05:55 Est GFR ( Amer) > 60.0 ml/min (>90) 12/30/18 05:55 Est GFR (Non-Af Amer) > 60.0 ml/min 12/30/18 05:55 BUN/Creatinine Ratio 25.0 12/30/18 05:55 Glucose 130 mg/dL (70-105) H 12/30/18 05:55 POC Glucose 77 MG/DL (70 - 105) 12/28/18 06:01 Whole Bld Lactic Acid 1.68 mmol/L (0.60-1.99) 12/27/18 17:21 Calcium 8.7 mg/dL (8.6-10.3) 12/30/18 05:55 Total Bilirubin 1.0 mg/dL (0.3-1.0) 12/28/18 04:28 AST 46 U/L (13-39) H 12/28/18 04:28 ALT 24 U/L (7-52) 12/28/18 04:28 Alkaline Phosphatase 80 U/L (34-104) 12/28/18 04:28 Troponin I 0.01 ng/mL (0.01-0.05) 12/27/18 17:21 Total Protein 5.7 gm/dL (6.0-8.3) L 12/28/18 04:28 Albumin 2.9 gm/dL (4.2-5.5) L 12/28/18 04:28 Globulin 2.8 gm/dL 12/28/18 04:28 Albumin/Globulin Ratio 1.0 (1.0-1.8) 12/28/18 04:28 Urine Source CATH 12/27/18 17:45 Urine Color YELLOW 12/27/18 17:45 Urine Clarity HAZY (CLEAR) 12/27/18 17:45 Urine pH 6.5 (4.6 - 8.0) 12/27/18 17:45 Ur Specific [place] 1.015 (1.005-1.030) 12/27/18 17:45 Urine Protein NEGATIVE mg/dL (NEGATIVE) 12/27/18 17:45 Urine Glucose (UA) NEGATIVE mg/dL (NEGATIVE) 12/27/18 17:45 Urine Ketones NEGATIVE mg/dL (NEGATIVE) 12/27/18 17:45 Urine Blood TRACE (NEGATIVE) 12/27/18 17:45 Urine Nitrate POSITIVE (NEGATIVE) H 12/27/18 17:45 Urine Bilirubin NEGATIVE (NEGATIVE) 12/27/18 17:45 Urine Urobilinogen 1.0 E.U./dL (0.2 - 1.0) 12/27/18 17:45 Ur Leukocyte Esterase SMALL (NEGATIVE) H 12/27/18 17:45 Urine RBC 2-5 /hpf (0-5) H 12/27/18 17:45 Urine WBC 6-10 /hpf (0-5) 12/27/18 17:45 Ur Epithelial Cells OCCASIONAL /lpf (FEW) 12/27/18 17:45 Urine Bacteria 3+ /hpf (NONE SEEN) H 12/27/18 17:45 Coarse Granular Casts 0-2 /lpf (NONE SEEN) H 12/27/18 17:45 Urine Mucus FEW /lpf (FEW) 12/27/18 17:45 - Physical Exam Vitals and I&O: Vital Signs Temp 98.2 F 12/30/18 12:00 Pulse 92 12/30/18 12:52 Resp 20 12/30/18 12:52 BP 98/53 12/30/18 12:00 Pulse Ox 97 12/30/18 12:52 Intake & Output 12/29/18 12/30/18 12/30/18 18:59 06:59 18:59 Intake Total 485 100 50 Output Total 3 Balance 485 97 50 Weight (lbs) 73.482 kg 73.482 kg Intake: Intake, IV Amount 100 100 50 Piperacillin Sodium/ 100 100 50 Tazobact 3.375 gm In Sodium Chloride 0.9% 50 ml @ 100 mls/hr IV Q6HR [facility] Rx#:[id number] Tube Feeding 385 Output: Urine 3 Other: # Voids 2 # Bowel Movements 1 2 Weight Source Bedscale Bedscale Active Medications: Current Medications Acetaminophen (Tylenol) 650 mg GT Q4H PRN PRN Reason: GENERALIZED BODY PAIN/TEMP>101 Stop: 02/27/19 19:07 Albuterol/Ipratropium (Duoneb Neb) 3 ml HHN Q4HRT PRN PRN Reason: Wheezing Stop: 02/25/19 22:42 Albuterol/Ipratropium (Duoneb Neb) 3 ml HHN Q6HRT [facility] Stop: 02/25/19 22:59 Last Admin: 12/30/18 12:52 Dose: 3 ml Diphenhydramine HCl (Benadryl) 50 mg GT Q8H PRN PRN Reason: Itching Stop: 02/27/19 19:07 Piperacillin Sod/Tazobactam (Sod 3.375 gm/ Sodium Chloride) 50 mls @ 100 mls/ hr IV Q6HR [facility] Stop: 02/25/19 17:59 Last Infusion: 12/30/18 11:45 Dose: Infused Levofloxacin (Levaquin Pb) 500 mg in 100 mls @ 100 mls/hr IV Q24HR [facility] Stop: 02/25/19 19:59 Last Admin: 12/29/18 22:00 Dose: Not Given Levetiracetam (Keppra) 1,000 mg PO TID OL[facility] Stop: 02/27/19 20:59 Last Admin: 12/30/18 09:10 Dose: 1,000 mg Magnesium Hydroxide (Milk Of Magnesia) 30 ml GT HS [facility] Stop: 02/27/19 20:59 Last Admin: 12/29/18 21:01 Dose: 30 ml Miscellaneous (Misc Oral Liquid) 2 udc GT BID OLGA; Protocol Stop: 02/27/19 20:59 Senna (Senna) 8.6 mg GT DAILY [facility] Stop: 02/28/19 08:59 Last Admin: 12/30/18 09:10 Dose: 8.6 mg Physical Exam: Patient diagnosed with pneumonia. General: weak, alert HEENT: NC/AT, PERRLA Neck: + trach Lungs: ronchi Cardiovascular: RRR, Normal S1, Normal S2, without murmur Abdomen: soft, non-tender, non-distended, positive bowel sound Extremities: excoriation Neurological: alert Internal Medicine Assmt/Plan - Assessment Assessment: Pneumonia. History of Anoxic brain injury with Seizure. History of Respiratory failure. Epilepsy. Diabetes. Hypertension. Copd. Cerebrovascular disease. G-tube status. Trach status. Contractures of bilateral extremities. - Plan Plan: Continuation of care. ID consult and Pulmonary consult. Monitor Labs and Chest x-ray. Continue present meds as directed. Monitor vitals, Continue BP meds as directed. Accu-check daily, Continue DM meds as directed. Respiratory treatments and Pulmonary support prn. Supplemental Oxygen. Aspiration precaution. Deep suctioning prn. Monitor Diet/Nutritional support/G-tube feedings. G-tube care and Trach care. Physical therapy. Occupational therapy. Fall precaution, frequent nursing rounds, and as needed restraints to prevent fall. Supportive care. Seizure precaution. Continue collaborating with consulting specialists, case management and nursing team. Will Monitor patient and continue present care management. Nutritional Asmnt/Malnutr-PDOC - Dietary Evaluation Malnutrition Findings (Please click <Entered> for more info): Nutritional Asmnt/Malnutrition Start: 12/28/18 12: 52 Text: Status: Complete Freq: Protocol: Document 12/28/18 12:52 MBONUS (Rec: 12/28/18 13:09 [email or web address]) Nutritional Asmnt/Malnutrition Patient General Information Nutritional Screening High Risk Diagnosis Pneumonnia Pertinent Medical Hx/Surgical Hx PNEUMONNIA Current Diet Order/ Nutrition Support GLUCERNA 1.2 @55ML/HR FOR 20 HOURS Pertinent Medications ALBUTEROL Pertinent Labs 12/27 Cl 97, Alb 3.3 12/28 Alb 2.9 Nutritional Hx/Data Height 1.7 m Height (Calculated Centimeters) 170.2 Current Weight (lbs) 73.482 kg Weight (Calculated Kilograms) 73.5 Weight (Calculated Grams) 15209.0 [place] Body Weight 145 % [place] Body Weight 112 Body Mass Index (BMI) 25.3 Weight Status Overweight GI Symptoms GI Symptoms None Last BM NOT NOTED Skin Integrity/Comment: INTACT, FLUSH, WARM, ELASTIC Estimated Nutritional Goals BEE in Kcals: Adj wt of IBW Calories/Kcals/Kg 20-25 Kcals Calculated 5165-9385 Protein: Adj wt of IBW Protein g/k.8-0.9 Protein Calculated 55-62 Fluid: ml 5546-3572 Nutritional Problem 1. Problem Problem INADEQUATE ORAL INTAKE Etiology R/T VEGETATIVE STATE Signs/Symptoms: AEB G-TUBE PLACEMENT Malnutrition Related to Morbid Obesity Malnutrition related to morbid obesity No Intervention/Recommendation Comments 1.Continue with current TF regimen. It provides 1320kcal, 66g protein, 885ml free water , meeting 95% of calories needs and 100%+ protein need. Expected Outcomes/Goals Expected Outcomes/Goals 1. Monitor TF rate, tolerance, wt, skin integrity and labs 2. F/U as moderate risk in 3-5 days, 12/31-01/02
--- NOTE | 2018-12-30 15:46 | Infectious Disease Prog Note ---
Infectious Disease Subjective - Review of Systems Service Date: 12/30/18 Subjective: There is no new change, no fever. Infectious Disease Objective - Results Result Diagrams: 12/30/18 05:55 12/30/18 05:55 Recent Labs: Laboratory Last Values WBC 4.8 Th/cmm (4.8-10.8) 12/30/18 05:55 RBC 3.52 Mil/cmm (4.30-5.70) L 12/30/18 05:55 Hgb 11.9 gm/dL (12-16) L 12/30/18 05:55 Hct 34.3 % (41.0-60) L 12/30/18 05:55 MCV 97.6 fl (80-99) 12/30/18 05:55 MCH 33.7 pg (26.0-30.0) H 12/30/18 05:55 MCHC Differential 34.5 pg (28.0-36.0) 12/30/18 05:55 RDW 11.8 % (11.5-20.0) 12/30/18 05:55 Plt Count 201 Th/cmm (150-400) 12/30/18 05:55 MPV 7.5 fl 12/30/18 05:55 Add Manual Diff YES 12/30/18 05:55 Neutrophils % 62.7 % (40.0-80.0) 12/27/18 17:21 Band Neutrophils % 0 % (0-10) 12/30/18 05:55 Lymphocytes % 19.4 % (20.0-50.0) L 12/27/18 17:21 Monocytes % 14.1 % (2.0-10.0) H 12/27/18 17:21 Eosinophils % 1.1 % (0.0-5.0) 12/27/18 17:21 Basophils % 2.7 % (0.0-2.0) H 12/27/18 17:21 Neutrophils (Manual) 58 % (40-80) 12/30/18 05:55 Lymphocytes 22 % (20-50) 12/30/18 05:55 Monocytes 16 % (2-10) H 12/30/18 05:55 Eosinophils 4 % (0-5) 12/30/18 05:55 Basophils 0 % (0-3) 12/30/18 05:55 PT 9.8 SECONDS (9.5-11.5) 12/27/18 17:21 INR 0.94 (0.5-1.4) 12/27/18 17:21 PTT (Actin FS) 29.3 SECONDS (26.0-38.0) 12/27/18 17:21 Sodium 146 mEq/L (136-145) H 12/30/18 05:55 Potassium 3.6 mEq/L (3.5-5.1) 12/30/18 05:55 Chloride 108 mEq/L (98-107) H 12/30/18 05:55 Carbon Dioxide 29.8 mEq/L (21.0-31.0) 12/30/18 05:55 Anion Gap 11.8 (7.0-16.0) 12/30/18 05:55 BUN 20 mg/dL (7-25) 12/30/18 05:55 Creatinine 0.8 mg/dL (0.7-1.3) 12/30/18 05:55 Est GFR ( Amer) > 60.0 ml/min (>90) 12/30/18 05:55 Est GFR (Non-Af Amer) > 60.0 ml/min 12/30/18 05:55 BUN/Creatinine Ratio 25.0 12/30/18 05:55 Glucose 130 mg/dL (70-105) H 12/30/18 05:55 POC Glucose 77 MG/DL (70 - 105) 12/28/18 06:01 Whole Bld Lactic Acid 1.68 mmol/L (0.60-1.99) 12/27/18 17:21 Calcium 8.7 mg/dL (8.6-10.3) 12/30/18 05:55 Total Bilirubin 1.0 mg/dL (0.3-1.0) 12/28/18 04:28 AST 46 U/L (13-39) H 12/28/18 04:28 ALT 24 U/L (7-52) 12/28/18 04:28 Alkaline Phosphatase 80 U/L (34-104) 12/28/18 04:28 Troponin I 0.01 ng/mL (0.01-0.05) 12/27/18 17:21 Total Protein 5.7 gm/dL (6.0-8.3) L 12/28/18 04:28 Albumin 2.9 gm/dL (4.2-5.5) L 12/28/18 04:28 Globulin 2.8 gm/dL 12/28/18 04:28 Albumin/Globulin Ratio 1.0 (1.0-1.8) 12/28/18 04:28 Urine Source CATH 12/27/18 17:45 Urine Color YELLOW 12/27/18 17:45 Urine Clarity HAZY (CLEAR) 12/27/18 17:45 Urine pH 6.5 (4.6 - 8.0) 12/27/18 17:45 Ur Specific [place] 1.015 (1.005-1.030) 12/27/18 17:45 Urine Protein NEGATIVE mg/dL (NEGATIVE) 12/27/18 17:45 Urine Glucose (UA) NEGATIVE mg/dL (NEGATIVE) 12/27/18 17:45 Urine Ketones NEGATIVE mg/dL (NEGATIVE) 12/27/18 17:45 Urine Blood TRACE (NEGATIVE) 12/27/18 17:45 Urine Nitrate POSITIVE (NEGATIVE) H 12/27/18 17:45 Urine Bilirubin NEGATIVE (NEGATIVE) 12/27/18 17:45 Urine Urobilinogen 1.0 E.U./dL (0.2 - 1.0) 12/27/18 17:45 Ur Leukocyte Esterase SMALL (NEGATIVE) H 12/27/18 17:45 Urine RBC 2-5 /hpf (0-5) H 12/27/18 17:45 Urine WBC 6-10 /hpf (0-5) 12/27/18 17:45 Ur Epithelial Cells OCCASIONAL /lpf (FEW) 12/27/18 17:45 Urine Bacteria 3+ /hpf (NONE SEEN) H 12/27/18 17:45 Coarse Granular Casts 0-2 /lpf (NONE SEEN) H 12/27/18 17:45 Urine Mucus FEW /lpf (FEW) 12/27/18 17:45 - Physical Exam Vitals and I&O: Vital Signs Temp 98.2 F 12/30/18 12:00 Pulse 92 12/30/18 12:52 Resp 20 12/30/18 12:52 BP 98/53 12/30/18 12:00 Pulse Ox 97 12/30/18 12:52 Intake & Output 12/29/18 12/30/18 12/30/18 18:59 06:59 18:59 Intake Total 485 100 50 Output Total 3 Balance 485 97 50 Weight (lbs) 73.482 kg 73.482 kg Intake: Intake, IV Amount 100 100 50 Piperacillin Sodium/ 100 100 50 Tazobact 3.375 gm In Sodium Chloride 0.9% 50 ml @ 100 mls/hr IV Q6HR [facility] Rx#:[id number] Tube Feeding 385 Output: Urine 3 Other: # Voids 2 # Bowel Movements 1 2 Weight Source Bedscale Bedscale Active Medications: Current Medications Acetaminophen (Tylenol) 650 mg GT Q4H PRN PRN Reason: GENERALIZED BODY PAIN/TEMP>101 Stop: 02/27/19 19:07 Albuterol/Ipratropium (Duoneb Neb) 3 ml HHN Q4HRT PRN PRN Reason: Wheezing Stop: 02/25/19 22:42 Albuterol/Ipratropium (Duoneb Neb) 3 ml HHN Q6HRT OLGA Stop: 02/25/19 22:59 Last Admin: 12/30/18 12:52 Dose: 3 ml Diphenhydramine HCl (Benadryl) 50 mg GT Q8H PRN PRN Reason: Itching Stop: 02/27/19 19:07 Piperacillin Sod/Tazobactam (Sod 3.375 gm/ Sodium Chloride) 50 mls @ 100 mls/ hr IV Q6HR OLGA Stop: 02/25/19 17:59 Last Infusion: 12/30/18 11:45 Dose: Infused Levofloxacin (Levaquin Pb) 500 mg in 100 mls @ 100 mls/hr IV Q24HR [facility]GA Stop: 02/25/19 19:59 Last Admin: 12/29/18 22:00 Dose: Not Given Levetiracetam (Keppra) 1,000 mg PO TID OLGA Stop: 02/27/19 20:59 Last Admin: 12/30/18 14:30 Dose: 1,000 mg Magnesium Hydroxide (Milk Of Magnesia) 30 ml GT HS OLGA Stop: 02/27/19 20:59 Last Admin: 12/29/18 21:01 Dose: 30 ml Miscellaneous (Misc Oral Liquid) 2 udc GT BID OLGA; Protocol Stop: 02/27/19 20:59 Senna (Senna) 8.6 mg GT DAILY OLGA Stop: 02/28/19 08:59 Last Admin: 12/30/18 09:10 Dose: 8.6 mg General: no acute distress, well developed, well nourished HEENT: atraumatic, normocephalic, PERRLA, EOMI Neck: supple, tracheostomy Cardiovascular: S1S2, regular Lungs: clear to auscultation bilaterally, clear to percussion Abdomen: soft, other (g tube), no tender, no distended, no mass Extremities: no cyanosis, no clubbing, no edema Neurological: other (open eye) Skin: intact Infectious Disease Assmt/Plan - Assessment Assessment: 1. Urinary tract infection. pseudomonas 2. Respiratory insufficiency, on T-bar oxygen. 3. Diabetes mellitus 2. 4. Hypertension. 5. Cerebrovascular accident and anoxic encephalopathy. 6. Seizure disorder. - Plan Plan: Continue Zosyn, transfer to [facility];' Nutritional Asmnt/Malnutr-PDOC - Dietary Evaluation Malnutrition Findings (Please click <Entered> for more info): Nutritional Asmnt/Malnutrition Start: 12/28/18 12: 52 Text: Status: Complete Freq: Protocol: Document 12/28/18 12:52 [email or web address] (Rec: 12/28/18 13:09 [email or web address]) Nutritional Asmnt/Malnutrition Patient General Information Nutritional Screening High Risk Diagnosis Pneumonnia Pertinent Medical Hx/Surgical Hx PNEUMONNIA Current Diet Order/ Nutrition Support GLUCERNA 1.2 @55ML/HR FOR 20 HOURS Pertinent Medications ALBUTEROL Pertinent Labs 12/27 Cl 97, Alb 3.3 12/28 Alb 2.9 Nutritional Hx/Data Height 1.7 m Height (Calculated Centimeters) 170.2 Current Weight (lbs) 73.482 kg Weight (Calculated Kilograms) 73.5 Weight (Calculated Grams) 15046.0 [place] Body Weight 145 % [place] Body Weight 112 Body Mass Index (BMI) 25.3 Weight Status Overweight GI Symptoms GI Symptoms None Last BM NOT NOTED Skin Integrity/Comment: INTACT, FLUSH, WARM, ELASTIC Estimated Nutritional Goals BEE in Kcals: Adj wt of IBW Calories/Kcals/Kg 20-25 Kcals Calculated 5172-2241 Protein: Adj wt of IBW Protein g/k.8-0.9 Protein Calculated 55-62 Fluid: ml 1572-0090 Nutritional Problem 1. Problem Problem INADEQUATE ORAL INTAKE Etiology R/T VEGETATIVE STATE Signs/Symptoms: AEB G-TUBE PLACEMENT Malnutrition Related to Morbid Obesity Malnutrition related to morbid obesity No Intervention/Recommendation Comments 1.Continue with current TF regimen. It provides 1320kcal, 66g protein, 885ml free water , meeting 95% of calories needs and 100%+ protein need. Expected Outcomes/Goals Expected Outcomes/Goals 1. Monitor TF rate, tolerance, wt, skin integrity and labs 2. F/U as moderate risk in 3-5 days, 12/31-01/02
[2018-12-30] MEDS ORDERED: VALPROIC ACID GT SCH (17:00)
[2018-12-30] MEDS: Magnesium Hydroxide (MOM) 30 mL UDC GT SCH (20:25)
== END 2018-12-30 22:09 | DRG 177 ==
LOC: ER 16:38 → TELE 18:35
PROVIDERS: ADMIT Internal Medicine; ATTEND Internal Medicine
DX: J69.0 Pneumonitis due to inhalation of food and vomit (principal); R53.2 Functional quadriplegia; N39.0 Urinary tract infection, site not specified; E11.9 Type 2 diabetes mellitus without complications; I10 Essential (primary) hypertension; G40.909 Epilepsy, unspecified, not intractable, without status epilepticus; J44.9 Chronic obstructive pulmonary disease, unspecified; I25.10 Atherosclerotic heart disease of native coronary artery without angina pectoris; Z93.1 Gastrostomy status; Z86.73 Personal history of transient ischemic attack (TIA), and cerebral infarction without residual deficits
CPT/HCPCS: 36415-UA; 71045-TC; 80048-TC; 80053-TC; 81001-TC; 82948-90; 83605; 84484-TC; 85007-TC; 85025-TC; 85610-TC; 87070; 87086-90; 93005; 94640; 94760; J1956; J2543; J3370; J7030; J7040; Z7610